=== PATIENT | female | born 1940 ===

== ENCOUNTER 2023-05-13 09:15 | Emergency (ER) | payer MEDICARE ==
[2023-05-13] MEDS ORDERED: fentaNYL 100 MCG/2 ML SDV IVPUSH ONE (09:24)
== END 2023-05-13 10:49 ==
LOC: DL.ED 09:15
DX: S72.031A Displaced midcervical fracture of right femur, initial encounter for closed fracture (principal); W01.0XXA Fall on same level from slipping, tripping and stumbling without subsequent striking against object, initial encounter; Y93.01 Activity, walking, marching and hiking; Y92.129 Unspecified place in nursing home as the place of occurrence of the external cause
CPT/HCPCS: 73502; 96374; 99283; 99285; J3010